=== PATIENT | female | born 1985 | race Caucasian/White ===

== ENCOUNTER → 2018-02-10 | Outpatient (CLI) | payer MEDICAID | LOC: M OUTALCOH 09:48 | DX: F12.10 Cannabis abuse, uncomplicated (principal) ==

== ENCOUNTER 2018-02-23 15:21 | Outpatient (RCR) | payer MEDICAID | END 2018-02-26 | LOC: M OUTALCOH 15:21 | DX: F12.10 Cannabis abuse, uncomplicated (principal); F17.200 Nicotine dependence, unspecified, uncomplicated ==

== ENCOUNTER → 2023-01-06 | Outpatient (CLI) | payer OTHER ==
[~2023-01-06] MED LIST: ATIV1TAB7 PO; LATU40TA2 PO; NICO7PA TD; OXYC7.5T3 PO; PRED20TA PO; ROBA750T4 PO; TIZA4CAP6 PO
== END ==
LOC: M RAD 13:30
PROVIDERS: ATTEND Orthopaedic Surgery Sports Medicine
DX: M50.221 Other cervical disc displacement at C4-C5 level (principal); M50.222 Other cervical disc displacement at C5-C6 level; M25.511 Pain in right shoulder

== ENCOUNTER 2023-03-30 16:55 | Emergency (ER) | payer OTHER ==
[2023-03-30 18:32] VITALS: BP 100/57; TEMP 98; O2SAT 100
== END 2023-03-30 18:42 | disposition home or self-care (01) ==
LOC: M ED 16:55
DX: F43.0 Acute stress reaction (principal); Z59.00 Homelessness unspecified; Z79.899 Other long term (current) drug therapy

== ENCOUNTER 2023-08-05 23:21 | Inpatient (IN) | payer MEDICAID, OTHER ==
[~2023-08-05] VITALS: Ht 172.7 cm; Wt 154.0 kg
[~2023-08-05 23:21] MED LIST changes: +CEFU1TAB20 PO; +VALT1TAB PO
[2023-08-05] MEDS ORDERED: HALOPERIDOL 5MG/ML 1ML VIAL IM ONE (23:45)
[2023-08-05] MEDS ORDERED: MIDAZOLAM INJ 2MG/2ML VIAL IM ONE (23:45)
[2023-08-05] MEDS ORDERED: diphenhydrAMINE 50MG/ML VIAL IM ONE (23:45)
[2023-08-06 00:06] LABS: HEMATOCRIT 40.1 % (36.0-47.0); HEMOGLOBIN 13.1 g/dl (12.0-15.5); MEAN CORPUSCULAR HEMOGLOBIN 31.3 pg (27.0-33.0); MEAN CORPUSCULAR HGB CONC 32.7 g/dl (32.0-36.5); MEAN CORPUSCULAR VOLUME 95.7 fl (80.0-96.0); PLATELET COUNT, AUTOMATED 305 10^3/uL (150-450); RED BLOOD COUNT 4.19 10^6/uL (4.00-5.40); WHITE BLOOD COUNT 10.3 10^3/uL (4.0-10.0)
[2023-08-06 00:32] LABS: ETHYL ALCOHOL (ETHANOL) 0.006 % (0.000-0.010)
[2023-08-06 00:33] LABS: SALICYLATE LEVEL < 3.0 MG/DL (<30)
[2023-08-06 00:34] LABS: ALBUMIN 3.9 G/DL (3.2-5.2); ALKALINE PHOSPHATASE 90 U/L (46-116); ALT/SGPT 35 U/L (7.0-40); AST/SGOT 22 U/L (<34); BILIRUBIN,DIRECT < 0.1 MG/DL (<0.4); BILIRUBIN,TOTAL 0.2 MG/DL (0.3-1.2); BLOOD UREA NITROGEN 15 MG/DL (9-23); CALCIUM LEVEL 9.7 MG/DL (8.5-10.1); CARBON DIOXIDE LEVEL 27 MMOL/L (20-31); CHLORIDE LEVEL 107 MMOL/L (98-107); CREATININE FOR GFR 0.89 MG/DL (0.55-1.30); GLOMERULAR FILTRATION RATE > 60.0 (>60); GLUCOSE, FASTING 79 MG/DL (60-100); POTASSIUM SERUM 4.4 MMOL/L (3.5-5.1); SODIUM LEVEL 143 MMOL/L (136-145); TOTAL PROTEIN 7.3 G/DL (5.7-8.2)
[2023-08-06 00:36] LABS: THYROID STIMULATING HORMONE 0.417 uIU/ML (0.55-4.78)
[2023-08-06] MEDS ORDERED: LORazepam 2 MG TAB PO STA (11:27)
[2023-08-06] MEDS: valACYclovir HCL 500 MG TAB PO SCH ×2 (11:55→18:15)
[2023-08-06 13:06] LABS: BARBITURATES URINE NEGATIVE (NEGATIVE); METHADONE URINE NEGATIVE (NEGATIVE); OPIATES URINE NEGATIVE (NEGATIVE); PHENCYCLIDINE URINE NEGATIVE (NEGATIVE)
[2023-08-06 13:16] LABS: AMPHETAMINES LEVEL URINE POSITIVE (NEGATIVE); BENZODIAZEPINES URINE POSITIVE (NEGATIVE); CANNABINOIDS URINE POSITIVE (NEGATIVE); COCAINE METABOLITE URINE POSITIVE (NEGATIVE)
[2023-08-06] MEDS ORDERED: MOM 30ML SUSPENSION UDC PO PRN (14:00)
[2023-08-06] MEDS ORDERED: OLANZapine 5 MG TAB PO PRN (14:00)
[2023-08-06] MEDS ORDERED: MAALOX 30 ML SUSP *UDC PO PRN (14:00)
[2023-08-06] MEDS ORDERED: traZODone 50 MG TAB PO PRN (14:00)
[2023-08-06] MEDS ORDERED: ACETAMINOPHEN TAB 650MG DOSE (2X325MG) PO PRN (14:00)
[2023-08-06] MEDS ORDERED: IBUPROFEN 400MG TAB PO PRN (14:00)
[2023-08-06] MEDS ORDERED: MED REC IN PROGRESS XX SCH (14:50)
[2023-08-06] MEDS ORDERED: valACYclovir HCL 500 MG TAB PO SCH ×2 (16:00)
[2023-08-06] MEDS ORDERED: OXYC10TA12 PO (18:32)
[2023-08-06] MEDS ORDERED: DIAZ2TAB PO (18:32)
[2023-08-06] MEDS ORDERED: HOME MED LIST COMPLETE! XX SCH (18:35)
[2023-08-06] MEDS: oxyCODONE 5MG TAB PO PRN (20:44)
[2023-08-06] MEDS: diazePAM 2 MG TAB PO PRN (20:44)
[2023-08-06] MEDS: NICOTINE 21MG/24HR 1 EA TRANSDERMAL TD PRN (20:45)
[2023-08-06 20:47] VITALS: BP 114/66; TEMP 97.6; O2SAT 99
[2023-08-07] MEDS: diazePAM 2 MG TAB PO PRN ×3 (06:04→22:15)
[2023-08-07] MEDS: oxyCODONE 5MG TAB PO PRN ×3 (06:05→22:15)
[2023-08-07 06:34] VITALS: BP 113/66; TEMP 98.9; O2SAT 100
[2023-08-07] MEDS ORDERED: NICOTINE 21MG/24HR 1 EA TRANSDERMAL TD SCH (09:00)
[2023-08-07] MEDS ORDERED: INFLUENZA QUADRIVALENT PF VACCINE 0.5ML SYRINGE IM.IMMUN ONE (12:00)
[2023-08-07 16:03] VITALS: BP 134/88; TEMP 97.7; O2SAT 100
[2023-08-07] MEDS: NICOTINE 21MG/24HR 1 EA TRANSDERMAL TD PRN (20:21)
[2023-08-07] MEDS: valACYclovir HCL 500 MG TAB PO SCH (20:21)
[2023-08-07] MEDS: ARIPiprazole 2 MG TAB PO SCH (20:21)
[2023-08-08] MEDS: diazePAM 2 MG TAB PO PRN ×3 (06:27→22:33)
[2023-08-08] MEDS: oxyCODONE 5MG TAB PO PRN ×3 (06:29→22:34)
[2023-08-08 06:31] VITALS: BP 117/59; TEMP 98; O2SAT 96
[2023-08-08] MEDS: valACYclovir HCL 500 MG TAB PO SCH ×3 (08:26→20:39)
[2023-08-08 16:03] VITALS: BP 129/66; TEMP 97.8; O2SAT 100
[2023-08-08] MEDS: diphenhydrAMINE 25MG CAP PO PRN (20:37)
[2023-08-08] MEDS: OLANZapine ORAL DISINTEGRATING TAB 5MG PO PRN (20:38)
[2023-08-08] MEDS: ARIPiprazole 2 MG TAB PO SCH (20:39)
[2023-08-08] MEDS: NICOTINE 21MG/24HR 1 EA TRANSDERMAL TD PRN (21:12)
[2023-08-09 06:26] VITALS: BP 135/56; TEMP 98.5; O2SAT 99
[2023-08-09] MEDS: diazePAM 2 MG TAB PO PRN ×3 (07:13→23:35)
[2023-08-09] MEDS: oxyCODONE 5MG TAB PO PRN ×3 (07:14→23:34)
[2023-08-09] MEDS: valACYclovir HCL 500 MG TAB PO SCH ×3 (08:28→20:08)
[2023-08-09] MEDS: OLANZapine ORAL DISINTEGRATING TAB 5MG PO PRN ×2 (10:59→22:07)
[2023-08-09 18:31] VITALS: BP 104/77; TEMP 97.3; O2SAT 99
[2023-08-09] MEDS: NICOTINE 21MG/24HR 1 EA TRANSDERMAL TD PRN (20:11)
[2023-08-09] MEDS ORDERED: ARIPiprazole 10 MG TAB PO SCH (21:00)
[2023-08-09] MEDS: diphenhydrAMINE 25MG CAP PO PRN (22:06)
[2023-08-10 06:22] VITALS: BP 124/55; TEMP 98.2; O2SAT 99
[2023-08-10] MEDS: oxyCODONE 5MG TAB PO PRN ×3 (07:52→23:56)
[2023-08-10] MEDS: diazePAM 2 MG TAB PO PRN ×3 (07:54→23:58)
[2023-08-10] MEDS: valACYclovir HCL 500 MG TAB PO SCH ×3 (09:26→21:00)
[2023-08-10] MEDS: diphenhydrAMINE 25MG CAP PO PRN (15:14)
[2023-08-10] MEDS: OLANZapine ORAL DISINTEGRATING TAB 5MG PO PRN ×2 (15:14→20:54)
[2023-08-10] MEDS ORDERED: PILL CUTTER 1 EACH XX PRN (15:35)
[2023-08-10 17:35] VITALS: BP 144/83; TEMP 98.6; O2SAT 99
[2023-08-10] MEDS: NICOTINE 21MG/24HR 1 EA TRANSDERMAL TD PRN (20:57)
[2023-08-11 06:01] VITALS: BP 113/56; TEMP 97.5; O2SAT 98
[2023-08-11] MEDS: oxyCODONE 5MG TAB PO PRN (08:25)
[2023-08-11] MEDS: diazePAM 2 MG TAB PO PRN (08:26)
[2023-08-11] MEDS ORDERED: ABIL1TAB11 PO (09:39)
[2023-08-11] MEDS: OLANZapine ORAL DISINTEGRATING TAB 5MG PO PRN (09:41)
[2023-08-11] MEDS: diphenhydrAMINE 25MG CAP PO PRN (09:41)
== END 2023-08-11 10:16 | disposition home or self-care (01) | DRG 753 ==
LOC: M ED 23:21 → M ED INP 08-06 13:56 → M PSY 08-06 18:47
PROVIDERS: ADMIT Student in an Organized Health Care Education/Training Program; ATTEND Student in an Organized Health Care Education/Training Program
DX: F31.9 Bipolar disorder, unspecified (principal); F43.10 Post-traumatic stress disorder, unspecified; F60.3 Borderline personality disorder; F15.90 Other stimulant use, unspecified, uncomplicated; F12.90 Cannabis use, unspecified, uncomplicated; F14.90 Cocaine use, unspecified, uncomplicated; Z91.148 Patient's other noncompliance with medication regimen for other reason; Z88.6 Allergy status to analgesic agent; J45.909 Unspecified asthma, uncomplicated; R51.9 Headache, unspecified; M54.50 Low back pain, unspecified; F41.9 Anxiety disorder, unspecified

== ENCOUNTER → 2025-03-28 | Outpatient (REF) ==
[~2025-03-28] MED LIST changes: +ABIL1TAB11 PO; +DIAZ2TAB PO; +OXYC10TA12 PO; +TIZA4CAP3 PO; -TIZA4CAP6 PO
== END ==
LOC: M PLAIMG 13:14
PROVIDERS: ATTEND Internal Medicine
DX: R52 Pain, unspecified (principal)